=== PATIENT | female | born 1985 | race Caucasian/White ===

== ENCOUNTER 2016-12-25 00:19 | Emergency (ER) | payer SELFPAY ==
[2016-12-25 02:11] VITALS: BP 113/78
== END 2016-12-25 02:11 | disposition left against medical advice (07) ==
LOC: ED 00:19
DX: Z53.21 Procedure and treatment not carried out due to patient leaving prior to being seen by health care provider (principal)

== ENCOUNTER 2017-01-20 10:14 | Emergency (ER) | payer SELFPAY ==
[~2017-01-20] VITALS: Ht 157.5 cm; Wt 66.2 kg
[2017-01-20 12:43] VITALS: BP 126/88
== END 2017-01-20 12:43 | disposition home or self-care (01) ==
LOC: ED 10:14
DX: S46.911A Strain of unspecified muscle, fascia and tendon at shoulder and upper arm level, right arm, initial encounter (principal); S39.012A Strain of muscle, fascia and tendon of lower back, initial encounter; S09.90XA Unspecified injury of head, initial encounter; V49.9XXA Car occupant (driver) (passenger) injured in unspecified traffic accident, initial encounter; Y93.89 Activity, other specified; Y92.89 Other specified places as the place of occurrence of the external cause; Y99.8 Other external cause status

== ENCOUNTER 2018-01-31 19:14 | Emergency (ER) | payer MEDICAID ==
[~2018-01-31] VITALS: Ht 157.5 cm; Wt 72.3 kg
[2018-01-31 19:18] VITALS: Ht 157.5 cm; Wt 72.3 kg
[2018-01-31 20:34] LABS: UA SPECIFIC GRAVITY 1.025 (1.005-1.035); microscopic required? YES; urine erythrocyte 2+ (NEGATIVE)
[2018-01-31 21:42] VITALS: BP 144/77
== END 2018-01-31 21:42 | disposition home or self-care (01) ==
LOC: ED 19:14
PROVIDERS: Emergency Medicine
DX: M54.5 Low back pain (principal)
CPT/HCPCS: J1885

== ENCOUNTER 2020-09-21 14:55 | Emergency (ER) | payer SELFPAY ==
[~2020-09-21] VITALS: Ht 165.1 cm; Wt 78.5 kg
[2020-09-21 15:00] VITALS: Ht 165.1 cm; Wt 78.5 kg
[2020-09-21 15:38] LABS: BASOPHIL % 0.8 % (0.2-1.3); PLATELET COUNT 282 x10^3mcL (179-408); RED CELL DISTRIBUTION WIDTH 12.3 % (12.3-17.7)
[2020-09-21 15:58] LABS: CALCIUM 9.2 mg/dL (8.5-10.1); CARBON DIOXIDE 27.7 mmol/L (21-32); CHLORIDE SERUM 104 mmol/L (98-107); CREATININE SERUM 0.8 mg/dL (0.6-1.0); GFR1 > 60 mL/min; GLUCOSE SERUM 103 mg/dL (74-106); SODIUM SERUM 140 mmol/L (136-145)
[2020-09-21 16:03] LABS: ALBUMIN 3.9 g/dL (3.4-5.0); ALKALINE PHOSPHATASE 58 U/L (46-116); ALT/SGPT 219 U/L (14-59); AST/SGOT 187 U/L (15-37); LIPASE 216 IU/L (73-393); TOTAL PROTEIN, SERUM 7.9 g/dL (6.4-8.2)
[2020-09-21 16:57] VITALS: BP 135/78
== END 2020-09-21 16:57 | disposition home or self-care (01) ==
LOC: ED 14:55
PROVIDERS: Emergency Medicine
DX: K60.2 Anal fissure, unspecified (principal); K62.5 Hemorrhage of anus and rectum; K29.20 Alcoholic gastritis without bleeding

== ENCOUNTER 2020-10-11 23:10 | Emergency (ER) | payer SELFPAY ==
[~2020-10-11] VITALS: Ht 172.7 cm; Wt 78.0 kg
[2020-10-11 23:27] VITALS: Ht 172.7 cm; Wt 78.0 kg
[2020-10-12 00:23] VITALS: BP 151/88
== END 2020-10-12 01:05 | disposition home or self-care (01) ==
LOC: ED 23:10
DX: S09.90XA Unspecified injury of head, initial encounter (principal); R55 Syncope and collapse; F10.129 Alcohol abuse with intoxication, unspecified; W18.30XA Fall on same level, unspecified, initial encounter; Y93.89 Activity, other specified; Y92.89 Other specified places as the place of occurrence of the external cause; Y99.8 Other external cause status